=== PATIENT | female | born 1990 | race African-American/Black ===

== ENCOUNTER 2019-04-12 19:58 | Observation (INO) | payer MEDICAID, OTHER ==
[~2019-04-12] VITALS: Ht 165.1 cm; Wt 77.1 kg
[2019-04-12] MEDS ORDERED: PRENATAL VITAMINS (20:52)
[2019-04-12 21:39] LABS: CLARITY URINE CLOUDY (CLEAR); COLOR URINE YELLOW (YELLOW); KETONES URINE NEGATIVE (NEGATIVE); LEUKOCYTE ESTERASE URINE TRACE (NEGATIVE); NITRITE URINE NEGATIVE (NEGATIVE); OCCULT BLOOD URINE NEGATIVE (NEGATIVE); PH URINE 6.5 (4.5-8.0); PROTEIN URINE NEGATIVE (NEGATIVE); SPECIFIC GRAVITY URINE 1.008 (1.005-1.030); UROBILINOGEN URINE 0.2 E.U./dL (0.2-1.0)
[2019-04-12 22:43] LABS: HEMATOCRIT 35.3 % (36.0-48.0); HEMOGLOBIN 12.1 g/dL (12.0-16.0); MEAN CORPUSCULAR VOLUME 102.4 fL (81.0-99.0); PLATELET 132 x1000/uL (130-400); RED BLOOD CELL COUNT 3.45 mill/uL (4.2-5.4); RED CELL DISTRIBUTION WIDTH 13.4 % (11.6-14.6)
[2019-04-12] MEDS ORDERED: TERBUTALINE SULFATE 1MG/ML VIAL SUBCUT PRN (23:00)
[2019-04-12] MEDS ORDERED: CEFAZOLIN 2,000 MG in DEXT 5% WATER 100 ML IV SCH (23:00)
[2019-04-12] MEDS: DEXT 5%/LACTATED RINGERS 1,000 ML IV SCH ×2 (23:05→23:24)
[2019-07-04] MEDS ORDERED: MULT1TAB67 MT (09:06)
[2019-07-04] MEDS ORDERED: IBUP-2029 MT (09:06)
[2019-07-04] MEDS ORDERED: FERR325T6 MT (09:06)
== END 2019-04-13 00:19 | disposition home or self-care (01) ==
LOC: 8 EST LDRP 19:58 → INTOOBSV 19:58
PROVIDERS: ADMIT Obstetrics & Gynecology; ATTEND Obstetrics & Gynecology
DX: O62.9 Abnormality of forces of labor, unspecified (principal); O26.893 Other specified pregnancy related conditions, third trimester; M54.5 Low back pain; R10.9 Unspecified abdominal pain; Z3A.29 29 weeks gestation of pregnancy
CPT/HCPCS: 36415; 76805; 76818; 81003; 85027; 96365; 96372; 99281; G0378; J0690; J3105; J7060; 96360; 96361

== ENCOUNTER 2019-06-02 14:28 | Inpatient (IN) | payer MEDICAID, OTHER ==
[~2019-06-02] VITALS: Ht 165.1 cm; Wt 90.3 kg
[~2019-06-02 14:28] MED LIST: PRENATAL VITAMINS
[2019-07-01] MEDS ORDERED: DEXT 5%/LR + PITOCIN 20UNITS/L 1,000 ML IV SCH (09:27)
[2019-07-01] MEDS ORDERED: LACTATED RINGERS 1,000 ML IV SCH (09:27)
[2019-07-01] MEDS ORDERED: MISOPROSTOL 100MCG TABLET VG SCH (09:30)
[2019-07-01] MEDS ORDERED: RHO(D) IMMUNE GLOBULIN 300 MCG/SYR IM ONE (09:30)
[2019-07-01] MEDS ORDERED: NALOXONE HCL 0.4 MG/ML 1ML VIAL IM PRN (09:30)
[2019-07-01] MEDS ORDERED: METHYLERGONOVINE MALEATE 0.2 MG/ML IM PRN (09:30)
[2019-07-01] MEDS ORDERED: CARBOPROST TROMETHAMINE 250 MCG/ML AMPUL IM PRN (09:30)
[2019-07-01 10:35] LABS: BASOPHILS % 0.6 % (0.0-2.0); HEMATOCRIT. 33.1 % (36.0-48.0); HEMOGLOBIN. 11.3 g/dL (12.0-16.0); LYMPHOCYTES % 23.6 % (20.0-50.0); MEAN CORPUSCULAR HEMOGLOBIN 34.1 pg (28.0-32.0); MEAN CORPUSCULAR VOLUME 99.9 fL (81.0-99.0); MEAN PLATELET VOLUME 11.2 fl (7.4-10.4); MONOCYTES % 8.3 % (2.0-8.0); NEUTROPHILS % 66.5 % (40.0-76.0); PLATELET 119 x1000/uL (130-400); RED BLOOD CELL COUNT 3.31 mill/uL (4.2-5.4); RED CELL DISTRIBUTION WIDTH 13.9 % (11.6-14.6)
[2019-07-01] MEDS ORDERED: CITRIC ACID/SODIUM CITRATE SOLN 30ML UDC PO NR (11:00)
[2019-07-01] MEDS ORDERED: FENTANYL CITRATE/PF 50MCG/ML 2ML VIAL ONE (11:16)
[2019-07-01] MEDS ORDERED: MORPHINE SULFATE/PF 1MG/ML 10ML AMP ONE (11:16)
[2019-07-01] MEDS ORDERED: PHENYLEPHRINE HCL 10 MG/ML 1ML (IV VIAL) IV ONE (11:17)
[2019-07-01] MEDS ORDERED: ONDANSETRON HCL 4MG/2ML INJ ONE (11:17)
[2019-07-01] MEDS ORDERED: GLYCOPYRROLATE 0.2 MG/ML 2ML VIAL ONE (11:17)
[2019-07-01] MEDS ORDERED: OXYTOCIN 10 UNITS/ML 1ML ONE ×2 (11:17→13:26)
[2019-07-01] MEDS ORDERED: CEFAZOLIN SODIUM 1000MG/VIAL ONE (11:17)
[2019-07-01] MEDS ORDERED: EPHEDRINE SULFATE 50MG/ML VIAL ONE (11:17)
[2019-07-01 11:28] LABS: INR 0.9; PARTIAL THROMBOPLASTIN TIME 29.6 sec (23.4-31.0); PROTHROMBIN TIME 9.8 sec (9.6-11.0)
[2019-07-01 11:51] LABS: HEPATITIS B SURFACE ANTIGEN NEGATIVE
[2019-07-01] MEDS ORDERED: METOCLOPRAMIDE HCL 10MG/2ML VIAL ONE (13:23)
[2019-07-01] MEDS ORDERED: KETOROLAC 60MG/2ML VIAL IM ONE (13:40)
[2019-07-01] MEDS ORDERED: ESMOLOL HCL 10MG/ML 10ML VIAL IV ONE (13:42)
[2019-07-01] MEDS ORDERED: DIPHENHYDRAMINE 50MG/ML VIAL ONE (14:05)
[2019-07-01] MEDS ORDERED: RHO(D) IMMUNE GLOBULIN 300 MCG/SYR IM PRN (14:15)
[2019-07-01] MEDS ORDERED: BISACODYL 10MG SUPP PR PRN (14:15)
[2019-07-01] MEDS ORDERED: LANOLIN OINT 7GM TUBE TOP PRN (14:15)
[2019-07-01] MEDS ORDERED: HYDROCODONE/ACETAMINOPHEN 5/325MG TABLET PO PRN (14:15)
[2019-07-01] MEDS ORDERED: ONDANSETRON HCL 4MG/2ML INJ IV PRN (14:15)
[2019-07-01] MEDS ORDERED: BUTORPHANOL TARTRATE 2 MG/ML VIAL IV PRN (14:30)
[2019-07-01] MEDS ORDERED: DIPHENHYDRAMINE 50MG/ML VIAL IV PRN (14:30)
[2019-07-01] MEDS: DEXT 5%/LR + PITOCIN 20UNITS/L 1,000 ML IV SCH (14:30)
[2019-07-01] MEDS ORDERED: NALOXONE HCL 0.4 MG/ML 1ML VIAL IV PRN (14:30)
[2019-07-01 17:30] VITALS: BP 102/58
[2019-07-01 17:49] LABS: CLARITY URINE CLEAR (CLEAR); COLOR URINE YELLOW (YELLOW); KETONES URINE TRACE (NEGATIVE); LEUKOCYTE ESTERASE URINE 1+ (NEGATIVE); NITRITE URINE NEGATIVE (NEGATIVE); OCCULT BLOOD URINE 2+ (NEGATIVE); PROTEIN URINE 1+ (NEGATIVE); SPECIFIC GRAVITY URINE 1.024 (1.005-1.030); UROBILINOGEN URINE 0.2 E.U./dL (0.2-1.0)
[2019-07-01 18:18] LABS: *AMPHETAMINES SCREEN URINE NEGATIVE (NEGATIVE); *BARBITURATES SCREEN URINE NEGATIVE (NEGATIVE); *BENZODIAZEPINES SCREEN URINE NEGATIVE (NEGATIVE)
[2019-07-01 18:19] LABS: *COCAINE SCREEN URINE NEGATIVE (NEGATIVE); CANNABINOID URINE SCREEN NEGATIVE (NEGATIVE); METHADONE URINE SCREEN NEGATIVE (NEGATIVE); OPIATES URINE SCREEN NEGATIVE (NEGATIVE); PHENCYCLIDINE URINE SCREEN NEGATIVE (NEGATIVE)
[2019-07-01 18:46] VITALS: BP 103/56
[2019-07-01 19:40] VITALS: BP 112/67
[2019-07-01] MEDS: KETOROLAC 30MG/ML VIAL IV SCH (22:24)
[2019-07-02 00:20] VITALS: BP 123/73
[2019-07-02] MEDS: DEXT 5%/LR + PITOCIN 20UNITS/L 1,000 ML IV SCH (02:32)
[2019-07-02 04:30] VITALS: BP 109/56
[2019-07-02 06:19] LABS: BASOPHILS % 0.3 % (0.0-2.0); EOSINOPHILS % 0.5 % (0.0-5.0); HEMATOCRIT. 30.5 % (36.0-48.0); HEMOGLOBIN. 10.4 g/dL (12.0-16.0); LYMPHOCYTES % 10.6 % (20.0-50.0); MEAN CORPUSCULAR HEMOGLOBIN 33.9 pg (28.0-32.0); MEAN CORPUSCULAR VOLUME 99.6 fL (81.0-99.0); MEAN PLATELET VOLUME 11.1 fl (7.4-10.4); NEUTROPHILS % 81.6 % (40.0-76.0); PLATELET 114 x1000/uL (130-400); RED BLOOD CELL COUNT 3.06 mill/uL (4.2-5.4); RED CELL DISTRIBUTION WIDTH 13.8 % (11.6-14.6)
[2019-07-02 07:48] VITALS: BP 105/61
[2019-07-02] MEDS: KETOROLAC 30MG/ML VIAL IV SCH (08:46)
[2019-07-02] MEDS: NITROFURANTOIN 100MG M/M CAPSULE PO SCH ×2 (08:47→21:29)
[2019-07-02] MEDS: PRENATAL VIT/FE FUMARATE/FA TABLET PO SCH (08:47)
[2019-07-02] MEDS: IBUPROFEN 400MG TABLET PO PRN (14:49)
[2019-07-02 15:34] VITALS: BP 93/53
[2019-07-02 19:40] VITALS: BP 117/68
[2019-07-02] MEDS: ACETAMINOPHEN WITH CODEINE 300/30MG TABLET PO PRN (19:57)
[2019-07-02] MEDS: DOCUSATE SODIUM 100MG CAPSULE PO SCH (19:59)
[2019-07-03 00:30] VITALS: BP 111/63
[2019-07-03 05:30] VITALS: BP 120/81
[2019-07-03] MEDS: ACETAMINOPHEN WITH CODEINE 300/30MG TABLET PO PRN ×2 (06:04→12:25)
[2019-07-03 07:55] VITALS: BP 112/69
[2019-07-03] MEDS: NITROFURANTOIN 100MG M/M CAPSULE PO SCH ×2 (09:04→21:28)
[2019-07-03] MEDS: PRENATAL VIT/FE FUMARATE/FA TABLET PO SCH (09:04)
[2019-07-03] MEDS: IBUPROFEN 400MG TABLET PO PRN ×2 (10:05→15:53)
[2019-07-03 13:55] VITALS: BP 107/70
[2019-07-03] MEDS: DOCUSATE SODIUM 100MG CAPSULE PO SCH (21:27)
[2019-07-03 22:00] VITALS: BP 113/73
[2019-07-04 06:00] VITALS: BP 112/71
[2019-07-04] MEDS: ACETAMINOPHEN WITH CODEINE 300/30MG TABLET PO PRN (07:40)
[2019-07-04 08:00] VITALS: BP 110/83
[2019-07-04] MEDS ORDERED: IBUP-2029 MT (09:06)
[2019-07-04] MEDS ORDERED: MULT1TAB67 MT (09:06)
[2019-07-04] MEDS ORDERED: FERR325T6 MT (09:06)
== END 2019-07-04 10:45 | disposition home or self-care (01) | DRG 540 ==
LOC: 8EST NSY 07-01 08:29 → OBSVTOIN 07-01 08:29 → 8 EST LDRP 07-01 08:33 → 8 EST A/PP 07-01 09:07 → 8EST 07-01 16:45
PROVIDERS: ADMIT Obstetrics & Gynecology; ATTEND Obstetrics & Gynecology
PROC: 10D00Z1 Extraction of Products of Conception, Low, Open Approach (ICD-10-PCS; principal; 2019-07-01)
DX: O34.211 Maternal care for low transverse scar from previous cesarean delivery (principal); O86.20 Urinary tract infection following delivery, unspecified; O69.81X0 Labor and delivery complicated by cord around neck, without compression, not applicable or unspecified; O90.81 Anemia of the puerperium; D64.9 Anemia, unspecified; Z37.0 Single live birth; Z3A.39 39 weeks gestation of pregnancy
CPT/HCPCS: 36415; 80305; 81003; 86592; 86703; 86762; 86850; 86900; 86920; 87340; 88307; J0690; J1200; J1885; J2274; J2370; J2405; J2590; J2765; J3010; J3490; J7120